=== PATIENT | female | born 1995 | race African-American/Black ===

== ENCOUNTER 2023-09-14 07:39 | Outpatient (CLI) | payer BC ==
[2023-09-14 08:38] LABS: BHCG - Serum Negative (NEGATIVE); Pregs Control Background? CLEAR/WHITE (CLR/WHITE); Pregs Control Bar Appear? YES (CONTROL BAR)
== END 2023-09-14 07:40 | disposition home or self-care (01) ==
LOC: RAD 07:39
PROVIDERS: ATTEND Advanced Practice Midwife
DX: Z32.00 Encounter for pregnancy test, result unknown (principal); N97.9 Female infertility, unspecified
CPT/HCPCS: 58340; 74740; 84703